=== PATIENT | male | born 1980 | race Caucasian/White ===

== ENCOUNTER → 2017-04-01 14:36 | Emergency (ER) | payer BC ==
--- NOTE | 2017-04-01 17:03 | RAD ---
HISTORY: Cough, history of lung nodule COMPARISONS: None VIEWS: 4: Frontal dual-energy and lateral views of the chest. FINDINGS: CARDIOMEDIASTINAL SILHOUETTE: The cardiomediastinal silhouette is normal. ZEE: The zee are normal. PLEURA: The costophrenic angles are sharp. No pleural abnormalities are noted. LUNG PARENCHYMA: There is a 0.6 cm noncalcified nodule overlying the left lower lung on the frontal projection. ABDOMEN: The upper abdomen is clear. There is no subphrenic gas. BONES AND SOFT TISSUES: No bone or soft tissue abnormalities are noted. OTHER: None. IMPRESSION: 0.6 CM NONCALCIFIED NODULE OF THE LEFT LOWER LUNG. RECOMMEND COMPARISON TO PRIOR IMAGING OR CONSIDERATION OF CT OF THE CHEST IN THE NONACUTE SETTING
[2017-04-01 17:23] LABS: ABS Basophils 0.1 10^3/ul (0-0.2); ABS Eosinophils 0.3 10^3/ul (0-0.6); ABS Lymphocytes 3.2 10^3/ul (1.0-4.8); ABS Neutrophils 5.6 10^3/ul (1.5-7.7); ABS Nucleated RBC 0 10^3/ul; Eosinophil % 3.1 % (0-6); Hematocrit 47 % (42-52); Hemoglobin 16.8 g/dl (14.0-18.0); Lymphocyte % 31.2 % (25-47); Mean Corpuscular HGB Conc 36 g/dl (31-36); Mean Corpuscular Hemoglobin 32 pg (27-31); Mean Corpuscular Volume 88 fL (80-94); Mean Platelet Volume 8 um3 (7.4-10.4); Nucleated Red Blood Cells % 0.3; Platelet Count 300 10^3/ul (150-450); Red Blood Count 5.33 10^6/ul (4.0-5.4); Red Cell Distribution Width 13 % (10.5-15); White Blood Count 10.2 10^3/ul (3.5-10.8)
[2017-04-01 17:36] LABS: EGFR Non-African American 100.6 (>60)
[2017-04-01 18:03] LABS: INR 0.94 (0.77-1.02)
--- NOTE | 2017-04-01 20:11 | RAD ---
HISTORY: Pulmonary nodule, hemoptysis COMPARISONS: Chest x-ray dated April 01, 2017 TECHNIQUE: Multiple contiguous axial CT scans of the chest were obtained without intravenous contrast. Coronal and sagittal multiplanar reformations are also submitted for review. FINDINGS: The study is limited by the lack of intravenous contrast. This limits evaluation of the solid organs and vasculature. NECK AND THYROID: The lower neck and thyroid are unremarkable. CHEST WALL: There is no lower cervical, axillary, or supraclavicular lymphadenopathy by size criteria. HEART AND PERICARDIUM: The heart is unremarkable. AORTA AND PULMONARY VASCULATURE: The aorta and pulmonary vasculature are normal. MEDIASTINUM: There is no mediastinal lymphadenopathy by size criteria. ZEE: There is no hilar lymphadenopathy by size criteria. AIRWAY AND ESOPHAGUS: The airway is unremarkable, without endobronchial filling defect. The esophagus is grossly normal. LUNG PARENCHYMA: There is a partially calcified 2 x 0.7 cm nodule of the left lower lobe. The lung bases. The lung parenchyma is otherwise clear. PLEURA: No pleural abnormalities are noted. UPPER ABDOMEN: The upper abdomen is unremarkable. BONES AND SOFT TISSUES: No bone or soft tissue abnormalities are noted. OTHER: None. IMPRESSION: THERE IS A 1.4 CM NODULE OF THE LEFT LOWER LOBE. THE LUNG BASES. THE DIFFERENTIAL INCLUDES PULMONARY AVM, THE IMAGING APPEARANCE IS INDETERMINATE. THE RECOMMENDATIONS FOR FOLLOWUP AND MANAGEMENT OF AN INCIDENTALLY DETECTED PULMONARY NODULE GREATER THAN 8 MM IN SIZE, IN A PATIENT WITHOUT A HISTORY OF MALIGNANCY, INCLUDE FOLLOWUP CT AT 3 MONTHS, PET-CT, AND/OR BIOPSY. NOTES: SIZE = AVERAGE LENGTH AND WIDTH; HIGH RISK IS DEFINED A HISTORY OF SMOKING OR OTHER KNOW RISK FACTORS FOR LUNG CANCER; LOW RISK IS DEFINED MINIMAL OR ABSENT HISTORY OF SMOKING OR OTHER KNOWN RISK FACTORS. Iasbela Barnes, DIPIKA Donis, ROBERT Niño, et al (2017) "Guidelines for Management of Incidental Pulmonary Nodules Detected on CT Images: From the Fleischner Society 2017." Radiology; 284(1): 228-243. doi:10.1148/radiol.8759230550 1.
--- NOTE | 2017-04-01 21:02 | ED ---
Respiratory - HPI Summary HPI Summary: 36M presents with cough and hemoptysis today. 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 He states that has had cough for past couple days but today he ended up coughing up a dime size amount of blood. He denies any chest pain or SOB. He denies any fever. He does not smoke. He denies any history of asthma or copd. cold medication has been helping the cough. He came in per the nurse at his executive [employer] for a CT scan which he was suppose to have in two weeks. - History of Current Complaint Chief Complaint: EDChestWallPain Stated Complaint: COUGHING UP BLOOD Time Seen by Provider: 04/01/17 19:35 Pain Intensity: 0 - Allergy/Home Medications Allergies/Adverse Reactions: Allergies Allergy/AdvReac Type Severity Reaction Status Date / Time No Known Allergies Allergy Verified 01/20/16 19:30 PMH/Surg Hx/FS Hx/Imm Hx Endocrine/Hematology History: Denies: Hx Anticoagulant Therapy Respiratory History: Denies: Hx Asthma - Surgical History Surgery Procedure, Year, and Place: SINUS SURGERY, LITHOTRIPSY - Immunization History Date of Tetanus Vaccine: UTD Date of Influenza Vaccine: NO Infectious Disease History: No Infectious Disease History: Denies: Traveled Outside the [place] in Last 30 Days - Family History Known Family History: Negative: Diabetes - Social History Alcohol Use: Weekly Substance Use Type: Reports: None Smoking Status (MU): Never Smoked Tobacco Review of Systems Negative: Fever Negative: Chest Pain Positive: Cough, Other - hemopytsis. Negative: Shortness Of Breath Negative: Abdominal Pain All Other Systems Reviewed And Are Negative: Yes Physical Exam Triage Information Reviewed: Yes Vital Signs On Initial Exam: Initial Vitals Temp Pulse Resp BP Pulse Ox 98.4 F 83 16 143/93 97 04/01/17 14:49 04/01/17 14:49 04/01/17 14:49 04/01/17 14:49 04/01/17 14:49 Vital Signs Reviewed: Yes Appearance: Positive: Well-Appearing Skin: Positive: Warm, Dry Head/Face: Positive: Normal Head/Face Inspection Eyes: Positive: Normal, EOMI, VALERIA, Conjunctiva Clear ENT: Positive: Normal ENT inspection, Pharynx normal, TMs normal Respiratory/Lung Sounds: Positive: Clear to Auscultation, Breath Sounds Present Cardiovascular: Positive: Normal, RRR Abdomen Description: Positive: Nontender, Soft Bowel Sounds: Positive: Present Musculoskeletal: Positive: Normal Neurological: Positive: Normal Psychiatric: Positive: Normal - Neo Coma Scale Coma Scale Total: 15 Diagnostics - Vital Signs Vital Signs Temp Pulse Resp BP Pulse Ox 04/01/17 17:19 98.5 F 86 18 127/82 98 04/01/17 14:49 98.4 F 83 16 143/93 97 - Laboratory Lab Results: Lab Results 04/01/17 04/01/17 04/01/17 Range/Units 16:56 16:56 16:56 WBC 10.2 (3.5-10.8) 10^3/ul RBC 5.33 (4.0-5.4) 10^6/ul Hgb 16.8 (14.0-18.0) g/dl Hct 47 (42-52) % MCV 88 (80-94) fL MCH 32 H (27-31) pg MCHC 36 (31-36) g/dl RDW 13 (10.5-15) % Plt Count 300 (150-450) 10^3/ul MPV 8 (7.4-10.4) um3 Neut % (Auto) 55.0 (38-83) % Lymph % (Auto) 31.2 (25-47) % [place] % (Auto) 9.6 H (1-9) % Eos % (Auto) 3.1 (0-6) % Baso % (Auto) 1.1 (0-2) % Absolute Neuts (auto) 5.6 (1.5-7.7) 10^3/ul Absolute Lymphs (auto) 3.2 (1.0-4.8) 10^3/ul Absolute Monos (auto) 1.0 H (0-0.8) 10^3/ul Absolute Eos (auto) 0.3 (0-0.6) 10^3/ul Absolute Basos (auto) 0.1 (0-0.2) 10^3/ul Absolute Nucleated RBC 0 10^3/ul Nucleated RBC % 0.3 INR (Anticoag Therapy) 0.94 (0.77-1.02) APTT 36.5 H (26.0-36.3) seconds Sodium (133-145) mmol/L Potassium Chloride (101-111) mmol/L Carbon Dioxide (22-32) mmol/L Anion Gap (2-11) mmol/L BUN (6-24) mg/dL Creatinine (0.67-1.17) mg/dL Est GFR ( Amer) (>60) Est GFR (Non-Af Amer) (>60) BUN/Creatinine Ratio (8-20) Glucose (70-100) mg/dL Calcium (8.6-10.3) mg/dL Total Bilirubin (0.2-1.0) mg/dL AST ALT Alkaline Phosphatase (34-104) U/L Troponin I (<0.04) ng/mL B-Natriuretic Peptide 81 ( - 100) pg/mL Total Protein (6.4-8.9) g/dL Albumin (3.2-5.2) g/dL Globulin (2-4) g/dL Albumin/Globulin Ratio (1-3) 04/01/17 Range/Units 16:56 WBC (3.5-10.8) 10^3/ul RBC (4.0-5.4) 10^6/ul Hgb (14.0-18.0) g/dl Hct (42-52) % MCV (80-94) fL MCH (27-31) pg MCHC (31-36) g/dl RDW (10.5-15) % Plt Count (150-450) 10^3/ul MPV (7.4-10.4) um3 Neut % (Auto) (38-83) % Lymph % (Auto) (25-47) % [place] % (Auto) (1-9) % Eos % (Auto) (0-6) % Baso % (Auto) (0-2) % Absolute Neuts (auto) (1.5-7.7) 10^3/ul Absolute Lymphs (auto) (1.0-4.8) 10^3/ul Absolute Monos (auto) (0-0.8) 10^3/ul Absolute Eos (auto) (0-0.6) 10^3/ul Absolute Basos (auto) (0-0.2) 10^3/ul Absolute Nucleated RBC 10^3/ul Nucleated RBC % INR (Anticoag Therapy) (0.77-1.02) APTT (26.0-36.3) seconds Sodium 137 (133-145) mmol/L Potassium TNP Chloride 102 (101-111) mmol/L Carbon Dioxide 28 (22-32) mmol/L Anion Gap 7 (2-11) mmol/L BUN 23 (6-24) mg/dL Creatinine 0.86 (0.67-1.17) mg/dL Est GFR ( Amer) 129.4 (>60) Est GFR (Non-Af Amer) 100.6 (>60) BUN/Creatinine Ratio 26.7 H (8-20) Glucose 85 (70-100) mg/dL Calcium 9.7 (8.6-10.3) mg/dL Total Bilirubin 0.60 (0.2-1.0) mg/dL AST TNP ALT TNP Alkaline Phosphatase 82 (34-104) U/L Troponin I 0.01 (<0.04) ng/mL B-Natriuretic Peptide ( - 100) pg/mL Total Protein 7.5 (6.4-8.9) g/dL Albumin 4.6 (3.2-5.2) g/dL Globulin 2.9 (2-4) g/dL Albumin/Globulin Ratio 1.6 (1-3) Result Diagrams: 04/01/17 16:56 04/01/17 16:56 Lab Statement: Any lab studies that have been ordered have been reviewed, and results considered in the medical decision making process. - Radiology chest Xray Interpretation: Positive (See Comments) - IMPRESSION: 0.6 CM NONCALCIFIED NODULE OF THE LEFT LOWER LUNG. RECOMMEND COMPARISON TO PRIOR IMAGING OR CONSIDERATION OF CT OF THE CHEST IN THE NONACUTE SETTING Radiology Interpretation Completed By: Radiologist - CT chest CT Interpretation: Positive (See Comments) - IMPRESSION: 0.6 CM NONCALCIFIED NODULE OF THE LEFT LOWER LUNG. RECOMMEND COMPARISON TO PRIOR IMAGING OR CONSIDERATION OF CT OF THE CHEST IN THE NONACUTE SETTING CT Interpretation Completed By: Radiologist Disposition - Course Course Of Treatment: 36M presents with cough and hemoptysis today. 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 He states that has had cough for past couple days but today he ended up coughing up a dime size amount of blood. He denies any chest pain or SOB. He denies any fever. He does not smoke. He denies any history of asthma or copd. cold medication has been helping the cough. He came in per the nurse at his executive [employer] for a CT scan which he was suppose to have in two weeks. on exam lungs CTA. chest xray and CT shows nodule. labs normal. patient will follow up with pulmonlogist. patient understand and agrees with plan. - Differential Dx - Cardiopulmonary Differential Diagnoses - Cardiopulmonary: Bronchitis, Lower Resp Infection, Other - pulmonary nodule - Diagnoses Provider Diagnoses: Hemoptysis, Pulmonary nodule, Cough Discharge - Discharge Plan Condition: Good Disposition: HOME Patient Education Materials: Acute Cough (ED) Referrals: No Primary Care Phys,NOPCP [Primary Care Provider] - Additional Instructions: Follow up with pulmonology as scheduled Return to ED if develop any new or worsening symptoms
[2017-04-01 21:34] VITALS: BP 127/79
== END | disposition home or self-care (01) ==
LOC: ED 14:36
DX: R04.2 Hemoptysis (principal); R91.1 Solitary pulmonary nodule; R05 Cough
CPT/HCPCS: 36415; 71046; 71250; 80053; 83880; 84484; 85025; 85610; 85730; 99282